=== PATIENT | male | born 1985 | race Caucasian/White ===

== ENCOUNTER → 2016-09-04 | Outpatient (CLI) | payer BC ==
--- NOTE | 2016-09-04 16:18 | RADIOLOGY REPORT (SQ) ---
EXAM DESCRIPTION: MRI LT UPPER JOINT WITHOUT COMPLETED DATE/TIME: 09/04/2016 3:11 pm REASON FOR STUDY: ULNAR COLLATERAL LIGAMENT SPRAIN, LEFT S53.442A ULNAR COLLATERAL LIGAMENT SPRAIN OF LEFT ELBOW, INI COMPARISON: No plain films for comparison TECHNIQUE: Left elbow images acquired and stored on PACS. Multiplanar images to include fat sensitiv e sequences as T1, fluid sensitive sequences as T2/STIR, cartilage sensitive sequences as FSPD, and g radient echo sequences. LIMITATIONS: None. FINDINGS: BONE MARROW: There is an osteochondral fracture along the posterior articular surface of t he trochlea at the ulna humeral joint, with an 8 x 8 x 3 mm bone and cartilage fragment identified on axial image 12 and sagittal image 15. Adjacent edema in the medial humeral condyle. JOINT EFFUSION: Moderate to large joint effusion. There is very subtle medial subluxation of the uln a with respect to the distal humerus on axial images 10-12, with widening of the joint space medially . ARTICULAR SURFACES: Mild articular surface irregularity in the area of osteochondral fracture, right of way man ior trochlea. MEDIAL COLLATERAL LIGAMENT COMPLEX: Intact without edema or tear. MEDIAL EPICONDYLE AND COMMON FLEXOR TENDON: No tendinopathy. No partial or full-thickness tear. LATERAL COLLATERAL LIGAMENT: Not identified, torn. LATERAL EPICONDYLE AND COMMON EXTENSOR TENDON: Common extensor high-grade tendinopathy/ high-grade pa rtial thickness tear on axial images 11-18, and coronal images 9-14. LATERAL ULNAR COLLATERAL LIGAMENT: Not identified, torn BICEPS TENDON: Intact. No partial or full-thickness tendon tear. No muscle edema. TRICEPS TENDON: Intact. ULNAR NERVE: Well-visualized without edema or encroachment. ADJACENT SOFT TISSUES: No masses or edema. OTHER: No other significant finding. IMPRESSION: Elbow joint effusion Nondisplaced osteochondral fracture along the posterior trochlea Torn lateral ulnar collateral ligament, lateral collateral ligament with high-grade partial thickness tear common extensor tendon proximal attachment TECHNICAL DOCUMENTATION: JOB ID: [id number] [employer]- All Rights Reserved
== END ==
LOC: RAD 13:49
PROVIDERS: ATTEND Orthopaedic Surgery
DX: S53.442A Ulnar collateral ligament sprain of left elbow, initial encounter (principal); X58.XXXA Exposure to other specified factors, initial encounter